=== PATIENT | male | born 1950 | race Caucasian/White ===

== ENCOUNTER 2016-06-28 16:00 | Emergency (ER) | payer BC ==
[~2016-06-28] VITALS: Ht 177.8 cm; Wt 92.0 kg
[2016-06-28] MEDS ORDERED: LISI-170 PO (16:43)
[2016-06-28] MEDS ORDERED: HYDR12.53 PO (16:44)
[2016-06-28] MEDS ORDERED: FENO45CA PO (16:45)
[2016-06-28] MEDS ORDERED: TAMS0.4C2 PO (16:46)
[2016-06-28] MEDS ORDERED: IBUP800T PO (16:46)
[2016-06-28] MEDS ORDERED: HYDR-3138 PO (16:47)
[2016-06-28] MEDS ORDERED: ASPI-515 PO (16:49)
[2016-06-28] MEDS ORDERED: ACET1TAB50 PO (16:49)
[2016-06-28] MEDS ORDERED: INFL100V IV (16:51)
[2016-06-28] MEDS ORDERED: GLUCAGON 1 MG IVPush PRN (17:30)
[2016-06-28] MEDS ORDERED: ONDANSETRON 2MG/ML, 2ML IVPush ONE (17:30)
[2016-06-28] MEDS ORDERED: SODIUM CHLORIDE FLUSH 10ML SYR IVF ONE (17:30)
[2016-06-28] MEDS ORDERED: ONDANSETRON 2MG/ML, 2ML ONE (17:48)
[2016-06-28] MEDS ORDERED: GLUCAGON 1 MG ONE (17:48)
[2016-06-28] MEDS ORDERED: FENTANYL PF 100 MCG/2ML ONE (18:59)
[2016-06-28] MEDS ORDERED: MIDAZOLAM 1 MG/ML, 5ML ONE (18:59)
[2016-06-28] MEDS ORDERED: MIDAZOLAM 1 MG/ML, 2ML IVPush PRN (19:30)
[2016-06-28] MEDS ORDERED: FENTANYL PF 100 MCG/2ML IVPush ONE (19:30)
[2016-06-28 20:57] VITALS: BP 141/86
== END 2016-06-28 20:59 | disposition home or self-care (01) ==
LOC: ED 18:23
DX: T18.128A Food in esophagus causing other injury, initial encounter (principal); I10 Essential (primary) hypertension; M06.9 Rheumatoid arthritis, unspecified; E78.00 Pure hypercholesterolemia, unspecified; F17.200 Nicotine dependence, unspecified, uncomplicated; X58.XXXA Exposure to other specified factors, initial encounter; Y93.89 Activity, other specified; Y92.89 Other specified places as the place of occurrence of the external cause; Y99.8 Other external cause status
CPT/HCPCS: 43247; 96374; 96375; 99284; J1610; J2250; J2405; J3010